=== PATIENT | female | born 1935 | race Caucasian/White ===

== ENCOUNTER 2021-01-25 15:11 | Emergency (ER) | payer MEDICARE, BC ==
[~2021-01-25] VITALS: Ht 162.6 cm; Wt 75.9 kg
[2021-01-25] MEDS ORDERED: LISI2.5T2 PO (15:22)
[2021-01-25] MEDS ORDERED: CARV6.25 PO (15:22)
--- NOTE | 2021-01-25 16:16 | REP ---
INDICATION: WEAKNESS COMPARISON: None. TECHNIQUE: Portable AP view of the chest FINDINGS: Suspected large hiatal hernia and or elevation to the left hemidiaphragm with underlying perihilar and left lower lobe opacities may represent acute and or chronic changes including pleural effusion. No pneumothorax. Evaluation of the mediastinum is limited due to overlying opacities. IMPRESSION: Findings as described above. No prior examination is available for comparison. Elements of both acute and chronic changes suggested. Consider chest CT for further investigation if the patient remains symptomatic. <Electronically signed by Vadim Pollack > 01/25/21 [id number]
[2021-01-25] MEDS ORDERED: PANTOPRAZOLE 40MG VIAL (C9113 PER 1) IV ONE (17:15)
[2021-01-25] MEDS ORDERED: FAMOTIDINE IV BAG 20 MG in IV 1 EA IV ONE (17:15)
[2021-01-25] MEDS ORDERED: GI COCKTAIL 50ML BTL(HYOSCYAMINE/MAALOX/LIDOCAINE VISCOUS)(1:3:1) PO ONE (17:15)
[2021-01-25 18:51] LABS: HEMATOCRIT 35.4 % (36.0-47.0); HEMOGLOBIN 10.9 g/dl (12.0-15.5); MEAN CORPUSCULAR HEMOGLOBIN 29.1 pg (27.0-33.0); MEAN CORPUSCULAR HGB CONC 30.8 g/dl (32.0-36.5); MEAN CORPUSCULAR VOLUME 94.7 fl (80.0-96.0); PLATELET COUNT, AUTOMATED 498 10^3/uL (150-450); RED BLOOD COUNT 3.74 10^6/uL (4.00-5.40)
[2021-01-25 19:03] LABS: INR 1.19; PROTHROMBIN TIME 15.4 SECONDS (12.5-14.3)
[2021-01-25 19:04] LABS: PARTIAL THROMBOPLASTIN TIME 28.9 SECONDS (24.2-38.5)
[2021-01-25 19:19] LABS: ALT/SGPT 14 U/L (12-78); AMYLASE 105 U/L (25-115); BILIRUBIN,DIRECT 0.3 MG/DL (0.0-0.2); BILIRUBIN,TOTAL 0.6 MG/DL (0.2-1.0); BLOOD UREA NITROGEN 31 MG/DL (7-18); CALCIUM LEVEL 8.3 MG/DL (8.8-10.2); CARBON DIOXIDE LEVEL 24 MEQ/L (21-32); CHLORIDE LEVEL 108 MEQ/L (98-107); CK-MB VALUE MASS < 1.0 NG/ML (<3.6); CPK CREATINE PHOSPHOKINASE 17 U/L (26-192); CREATININE FOR GFR 1.14 MG/DL (0.55-1.30); GLOMERULAR FILTRATION RATE 48.1 (>32); GLUCOSE, FASTING 87 MG/DL (70-100); LIPASE 636 U/L (73-393); MB/CK RELATIVE INDEX 5.88 (< OR =4); POTASSIUM SERUM 4.3 MEQ/L (3.5-5.1); SODIUM LEVEL 141 MEQ/L (136-145); TROPONIN I < 0.02 NG/ML (< 0.10)
[2021-01-25] MEDS ORDERED: ISOVUE-370 76% 100ML VIAL As Ordered ONE (19:37)
[2021-01-25 19:41] LABS: WHITE BLOOD COUNT 15.8 10^3/uL (4.0-10.0)
[2021-01-25] MEDS ORDERED: NS 1,000 ML IV ONE (19:50)
[2021-01-25 20:02] LABS: ATYPICAL LYMPH 3 % (0-5); BASOPHILS 1 % (0-1); EOSINOPHILS 1 % (0-3); HYPOCHROMASIA 1+; LYMPHOCYTES 19 % (16-44); METAMYELOCYTES 1 % (0-0); MONOCYTES 6 % (0-5); NEUTROPHILS 67 % (28-66); PLATELET ESTIMATE INCREASED (NORMAL)
--- NOTE | 2021-01-25 21:02 | REPVR ---
PROCEDURE INFORMATION: Exam: CTA Chest With Contrast Exam date and time: 01/25/2021 8:03 PM Age: 85 years old Clinical indication: Chest pain; Additional info: Chest congestion, weakness, epigastric pain into chest pain TECHNIQUE: Imaging protocol: Computed tomographic angiography of the chest with contrast. 3D rendering (Not supervised by radiologist): MIP and/or 3D reconstructed images were created by the technologist. Radiation optimization: All CT scans at this facility use at least one of these dose optimization techniques: automated exposure control; mA and/or kV adjustment per patient size (includes targeted exams where dose is matched to clinical indication); or iterative reconstruction. Contrast material: ISOVUE 370; Contrast volume: 100 ml; Contrast route: INTRAVENOUS (IV); COMPARISON: CR Chest, 1 view 01/25/2021 3:56 PM FINDINGS: Pulmonary arteries: Normal. No pulmonary emboli. Aorta: Unremarkable. No aortic aneurysm. No aortic dissection. Thyroid: The thyroid is diffusely enlarged with numerous nodules of varying size and complexity. Lungs: Mild dependent atelectasis in the lung bases. No airspace consolidation or masses. Airways are clear. Pleural spaces: Small left pleural effusion. Heart: Unremarkable. No cardiomegaly. No pericardial effusion. Lymph nodes: Unremarkable. No enlarged lymph nodes. Gallbladder and bile ducts: Numerous calculi in the gallbladder. Stomach and bowel: There is a very large hiatal hernia containing the majority of the stomach and a large amount of peritoneal fat. Bones/joints: Skeletal degenerative changes are noted. Soft tissues: Unremarkable. IMPRESSION: 1. Large hiatal hernia containing a majority of the stomach. 2. Mild dependent atelectasis. Small left pleural effusion. 3. Multinodular thyroid goiter. 4. Cholelithiasis. COMMENTS: Consistent with the [employer]'s Incidental Findings Committee white paper (J Am Evelyn Radiol 2015): In patients aged 35 years and older with an incidental thyroid nodule equal to or greater than 1.[address], MRI or extrathyroidal US, further evaluation with dedicated thyroid US is recommended for patients with normal life expectancy and without comorbidities. For smaller nodules without suspicious features, no further evaluation or follow up is recommended. Electronically signed by: Hari Denton On 01/25/2021 21:02:21 PM
--- NOTE | 2021-01-25 21:09 | REPVR ---
PROCEDURE INFORMATION: Exam: CT Abdomen And Pelvis With Contrast Exam date and time: 01/25/2021 8:03 PM Age: 85 years old Clinical indication: Abdominal pain; Generalized; Additional info: Epigastric pain, radiates to back TECHNIQUE: Imaging protocol: Computed tomography of the abdomen and pelvis with contrast. Radiation optimization: All CT scans at this facility use at least one of these dose optimization techniques: automated exposure control; mA and/or kV adjustment per patient size (includes targeted exams where dose is matched to clinical indication); or iterative reconstruction. Contrast material: ISOVUE 370; Contrast volume: 100 ml; Contrast route: INTRAVENOUS (IV); COMPARISON: No relevant prior studies available. FINDINGS: Liver: Normal. No mass. Gallbladder and bile ducts: Multiple small calculi in the gallbladder. No gallbladder wall thickening or pericholecystic fluid. No biliary duct dilation. Pancreas: No pancreatic mass or pancreatic duct dilation. Spleen: Normal. No splenomegaly. Adrenal glands: Normal. No mass. Kidneys and ureters: Kidneys are atrophic. Small cysts in both kidneys. No hydronephrosis. Stomach and bowel: There is a large hiatal hernia containing majority of the stomach. Mild edema in the stomach at the level of the hiatal hernia. There is colonic diverticulosis without evidence of diverticulitis. The small bowel is unremarkable. No bowel obstruction. Appendix: No evidence of appendicitis. Intraperitoneal space: Unremarkable. No free air. No significant fluid collection. Retroperitoneal space: Retroperitoneal edema along the superior surface of the pancreas. Vasculature: Unremarkable. No abdominal aortic aneurysm. Lymph nodes: Unremarkable. No enlarged lymph nodes. Urinary bladder: Unremarkable as visualized. Reproductive: There is an IUD in the uterus. 5.9 cm cyst in the right ovary. 3.2 cm cyst in the left ovary. Bones/joints: There are advanced degenerative changes in the spine and pelvis. Soft tissues: Unremarkable. IMPRESSION: 1. Very large hiatal hernia containing majority of the stomach. Mild edema in the stomach at the level of the hiatal hernia may indicate gastritis. 2. Possible pancreatitis with retroperitoneal edema along the superior margin of the pancreas. No pancreatic duct dilation or abscess. 3. Bilateral ovarian cysts are abnormal for a postmenopausal woman of this age. Pelvic ultrasound follow-up is recommended if not previously evaluated. 4. Colonic diverticulosis without evidence of diverticulitis. 5. Cholelithiasis. No signs of cholecystitis or biliary duct dilation. COMMENTS: Consistent with the [employer]'s Incidental Findings Committee white paper (J Am Evelyn Radiol 2018): Any incidental renal lesion less than 1 cm or classified as too small to characterize, or any incidental cystic renal lesion characterized as simple-appearing, is likely benign. No follow-up imaging is recommended for these lesions per consensus recommendations based on imaging criteria. Electronically signed by: Hari Denton On 01/25/2021 21:09:34 PM
[2021-01-25 21:45] VITALS: BP 128/72
[2021-01-25] MEDS ORDERED: FAMO20TA PO (21:57)
--- NOTE | 2021-01-25 22:34 | ECGEPIP ---
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
--- NOTE | 2021-01-28 09:22 | ED PDOC ---
Post-Departure Follow-Up radiology report faxed to dayne Weinstein Sarah MD Jan 28, 2021 09:22
== END 2021-01-25 22:21 | disposition home or self-care (01) ==
LOC: M ED 15:11
DX: K85.90 Acute pancreatitis without necrosis or infection, unspecified (principal); K44.9 Diaphragmatic hernia without obstruction or gangrene; R09.82 Postnasal drip; I10 Essential (primary) hypertension; Z79.899 Other long term (current) drug therapy
CPT/HCPCS: 36415; 71045; 71275; 74177; 80048; 80076; 81001; 82150; 82550; 82553; 83605; 83690; 84484; 85025; 85610; 85730; 93005; 93041; 96361; 96365; 96375; 99285; C9113; Q9967

== ENCOUNTER 2021-02-04 13:00 | Inpatient (IN) | payer MEDICARE, BC ==
[~2021-02-04] VITALS: Ht 152.4 cm; Wt 72.4 kg
[~2021-02-04 13:00] MED LIST: CARV6.25 PO; FAMO20TA PO; LISI2.5T2 PO
[2021-02-04] MEDS ORDERED: NS 1,000 ML IV ONE ×2 (13:30→20:40)
[2021-02-04 13:57] LABS: HEMATOCRIT 30.7 % (36.0-47.0); HEMOGLOBIN 9.5 g/dl (12.0-15.5); MEAN CORPUSCULAR HEMOGLOBIN 29.4 pg (27.0-33.0); MEAN CORPUSCULAR HGB CONC 30.9 g/dl (32.0-36.5); PLATELET COUNT, AUTOMATED 473 10^3/uL (150-450); RED BLOOD COUNT 3.23 10^6/uL (4.00-5.40); WHITE BLOOD COUNT 27.4 10^3/uL (4.0-10.0)
--- NOTE | 2021-02-04 14:02 | REP ---
INDICATION: Altered Mental Status. COMPARISON: None. TECHNIQUE: CT brain performed in the axial plane. Coronal reconstruction images are performed. FINDINGS: There is moderate atrophy. There is no midline shift or mass effect. Patchy lucencies in the periventricular white matter bilaterally are most consistent with chronic periventricular small vessel ischemic changes. There is no acute intracranial hemorrhage or extra-axial fluid collection. There are vascular calcifications in the carotid siphons. The visualized paranasal sinuses and mastoid air cells are aerated and clear. IMPRESSION: Chronic changes as discussed above. No acute intracranial hemorrhage, midline shift or mass effect. <Electronically signed by Richie Perales > 02/04/21 [id number]
--- NOTE | 2021-02-04 14:20 | REP ---
INDICATION: Altered Mental Status. COMPARISON: 01/25/2021. TECHNIQUE: Single portable AP view of the chest was performed. FINDINGS: Again noted is a very large hiatal hernia on the left. Underlying left base infiltrate in or pleural effusion could again be present, as seen on prior study. The heart and mediastinum are unchanged. There are no new findings. IMPRESSION: Very large left hiatal hernia with possible underlying infiltrate/effusion. <Electronically signed by Richie Perales > 02/04/21 [id number]
[2021-02-04 14:25] LABS: LYMPHOCYTES 6 % (16-44); MONOCYTES 3 % (0-5); NEUTROPHILS 77 % (28-66)
[2021-02-04 14:26] LABS: PLATELET ESTIMATE INCREASED (NORMAL); TOXIC VACUOLATION 2+
[2021-02-04 14:27] LABS: HYPOCHROMASIA 1+
[2021-02-04] MEDS ORDERED: cefTRIAXone SOD 2 GM in D5W MINI-BAG PLUS 50 ML IV ONE (15:00)
[2021-02-04 15:13] LABS: ACETAMINOPHEN LEVEL 4.5 UG/ML (10.0-30.0); ALBUMIN 1.7 GM/DL (3.2-5.2); ALT/SGPT 12 U/L (12-78); BILIRUBIN,DIRECT 0.3 MG/DL (0.0-0.2); BILIRUBIN,TOTAL 0.5 MG/DL (0.2-1.0); BLOOD UREA NITROGEN 25 MG/DL (7-18); CALCIUM LEVEL 7.9 MG/DL (8.8-10.2); CARBON DIOXIDE LEVEL 20 MEQ/L (21-32); CHLORIDE LEVEL 106 MEQ/L (98-107); CK-MB VALUE MASS 6.4 NG/ML (<3.6); CPK CREATINE PHOSPHOKINASE 126 U/L (26-192); CREATININE FOR GFR 2.07 MG/DL (0.55-1.30); ETHYL ALCOHOL (ETHANOL) < 0.003 % (0.000-0.010); GLOMERULAR FILTRATION RATE 24.2 (>32); GLUCOSE, FASTING 86 MG/DL (70-100); LIPASE 101 U/L (73-393); MB/CK RELATIVE INDEX 5.08 (< OR =4); POTASSIUM SERUM 4.3 MEQ/L (3.5-5.1); SALICYLATE LEVEL < 1.7 MG/DL (5.0-30.0); SODIUM LEVEL 138 MEQ/L (136-145); THYROID STIMULATING HORMONE 0.171 uIU/ML (0.358-3.740); TROPONIN I 1.42 NG/ML (< 0.10)
[2021-02-04 15:15] LABS: AMPHETAMINES LEVEL URINE NEGATIVE (NEGATIVE); BARBITURATES URINE NEGATIVE (NEGATIVE); BENZODIAZEPINES URINE NEGATIVE (NEGATIVE); CANNABINOIDS URINE NEGATIVE (NEGATIVE); COCAINE METABOLITE URINE NEGATIVE (NEGATIVE); METHADONE URINE NEGATIVE (NEGATIVE); OPIATES URINE NEGATIVE (NEGATIVE); PHENCYCLIDINE URINE NEGATIVE (NEGATIVE)
[2021-02-04] MEDS ORDERED: NS IV ONE (15:35)
[2021-02-04] MEDS ORDERED: FAMO20TA5 PO (15:47)
[2021-02-04] MEDS ORDERED: MONT10TA10 PO (15:47)
[2021-02-04] MEDS ORDERED: MOM 30ML SUSPENSION UDC PO PRN (15:50)
[2021-02-04] MEDS ORDERED: ACETAMINOPHEN TAB 650MG DOSE (2X325MG) PO PRN (15:50)
[2021-02-04 16:20] LABS: FREE T4 2.09 NG/DL (0.76-1.46)
[2021-02-04 17:45] VITALS: BP 158/60
--- NOTE | 2021-02-04 18:42 | HPEPDOC ---
[facility] Medical History & Physical Date of Admission Feb 04, 2021 Date of Service: Feb 04, 2021 History and Physical CHIEF COMPLAINT: AMS HISTORY OF PRESENT ILLNESS: 85 yo woman with a history of HTN, GERD, hiatal hernia, asthma who presented to the ED a few days ago for abdominal pain and was discharged home with mild pa ncreatitis who now returned today because this morning her noted AMS and she did not recognize him and so he called EMS. They report no recent fever, chills, diarrhea, chest pain, palpitations, shortness of breath, sick contacts, speech slurring, asymmetrical weakness and the abdominal pain had actually improved. She has had poor PO though over the last few days. On arrival EMS gave her peripheral levophed for hypotension and not fluids, not sure why and brought her to the ED where she continued to have low BP and was given fluids with great response. On evaluation, she had a turbid grossly positive UA, and also endorsed bladder discomfort and some flank pain, while she had a leukocytosis to 27.4 with a 14% bandemia, Hgb 9.5, platelets 473, na 138, K 4.3, BUN 25, Cr 2.07, LFTs wnl, lipase wnl, troponin 1.42 with a non ischemic EKG, lactate of 1.8 and CXR showed a known large hiatal hernia and potential underlying L base infiltrate or effusion as previously noted as well and CT head showed no acute pathology. She is now being admitted to medicine for sepsis 2/2 pyelonephritis with an IVON and metabolic encephalopathy. In addition to the sepsis bolus of 30cc/kg she was given cetriaxone 2g IV and BCx were drawn prior to the antibiotics. PAST MEDICAL HISTORY: HTN, GERD, hiatal hernia, asthma SOCIAL HISTORY: Tobacco use: no ETOH: no Illicit drug use: no FAMILY HISTORY: non contributory ALLERGIES: Please see below. REVIEW OF SYSTEMS: 10 point ROS was otherwise negative except the elements as noted in the HPI HOME MEDICATIONS: Please see below. PHYSICAL EXAMINATION: VITAL SIGNS: see below GENERAL APPEARANCE: Elderly, NAD HEENT: NCAT, EOMI, PERRLA, anicteric, MMM CARDIOVASCULAR: RRR, no m/r/g LUNGS: CTAB ABDOMEN: soft, normoactive, NTND EXTREMITIES: 1+ pitting pedal edema bilaterally NEUROLOGICAL: Aox3 now, clear speech, moving all extremities without any noted deficits PSYCHIATRIC: AOx3. LABORATORY DATA and IMAGING: as noted above, see below for full details MICROBIOLOGY: Please see below. ASSESSMENT: 85 yo woman with a history of HTN, GERD, hiatal hernia, asthma who presented to the ED a few days ago for abdominal pain and was discharged home with mild pancreatitis who now returned today because this morning her noted AMS now being admitted to medicine for sepsis 2/2 pyelonephritis with an IVON and metabolic encephalopathy. PLAN: Sepsis with ongoing pyelonephritis: -UA was turbid and grossly positive, f/u UCx -f/u BCx -s/p IVF with good response -empiric ceftriaxone -tylenol PRN for fever and pain HTN: -hold all home antihypertensives while septic with low BPs GERD: -continue home PPI Asthma: -continue home montelukast IVON: likely prerenal -s/p IVF, may need more will monitor daily BMP and strict I/Os -no further imaging for now Troponinemia: without chest pain, a stable non ischemic EKG i/s/o likely demand 2/2 sepsis as well as IVON -telemetry -f/u q4h troponins until downtrend DVT ppx: heparin SC Vital Signs Vital Signs Date Time Temp Pulse Resp B/P (MAP) Pulse Ox O2 Delivery O2 Flow Rate FiO2 02/04/21 17:05 97.4 73 18 98/56 (70) 99 Room Air Laboratory Data Labs 24H Laboratory Tests 2 02/04/21 13:27: Urine Opiates Screen NEGATIVE, Urine Methadone Screen NEGATIVE, Urine Barbiturates Screen NEGATIVE, Urine Phencyclidine Screen NEGATIVE, Urine Amphetamines Screen NEGATIVE, Urine Benzodiazepines Screen NEGATIVE, Urine Cocaine Metabolite Screen NEGATIVE, Urine Cannabinoids Screen NEGATIVE 02/04/21 13:44: Neutrophils (%) (Auto) , Nucleated Red Blood Cells % (auto) 0.0, Neutrophils 77H, Band Neutrophils 14H, Lymphocytes (Manual) 6L, Monocytes (Manual) 3, Hypochromasia 1+, Toxic Vacuolation 2+, Platelet Estimate INCREASED 02/04/21 14:29: Anion Gap 12, Glomerular Filtration Rate 24.2L, Lactic Acid Level 1.8, Calcium Level 7.9L, Total Bilirubin 0.5, Direct Bilirubin 0.3H, Aspartate Amino Transf (AST/SGOT) 24, Alanine Aminotransferase (ALT/SGPT) 12, Alkaline Phosphatase 78, Total Creatine Kinase 126, Creatine Kinase MB 6.4H, Creatine Kinase MB Relative Index 5.08H, Troponin I 1.42H, Total Protein 5.0L, Albumin 1.7L, Albumin/Globulin Ratio 0.5L, Lipase 101, Thyroid Stimulating Hormone (TSH) 0.171L, Free Thyroxine 2.09H, Salicylates Level < 1.7L, Acetaminophen Level 4.5L, Ethyl Alcohol Level < 0.003 02/04/21 14:45: Urine Color TOY, Urine Appearance TURBIDH, Urine pH 5.0, Urine Specific [place] 1.015, Urine Protein 2+H, Urine Glucose (UA) NEGATIVE, Urine Ketones NEGATIVE, Urine Blood 3+H, Urine Nitrite NEGATIVE, Urine Bilirubin NEGATIVE, Urine Urobilinogen 0.2, Urine Leukocyte Esterase 3+H, Urine WBC (Auto) TNTCH, Urine RBC (Auto) 86H, Urine Hyaline Casts (Auto) 0, Urine Bacteria (Auto) 3+H, Urine Squamous Epithelial Cells 0, Urine Sperm (Auto) CBC/BMP Laboratory Tests 02/04/21 13:44 02/04/21 14:29 Microbiology Microbiology 02/04/21 Urine Culture, Received Pending 02/04/21 Blood Culture, Received Pending 02/04/21 Respiratory Virus Panel (PCR) (ROMULO) - Final, Complete 02/04/21 Blood Culture, Received Pending Home Medications Scheduled Carvedilol (Carvedilol) 6.25 Mg Tablet, 6.25 MG PO BID Famotidine (Famotidine) 20 Mg Tablet, 20 MG PO BID Lisinopril (Lisinopril) 2.5 Mg Tablet, 2.5 MG PO DAILY Montelukast Sodium (Montelukast Sodium) 10 Mg Tablet, 10 MG PO DAILY Allergies Coded Allergies: No Known Allergies (Unverified , 01/25/21) A-FIB/CHADSVASC A-FIB History Current/History of A-Fib/PAF?: No Current PO Anticoag Therapy: No Age/Risk Factor Scoring CHADSVASC: CHADSVASC Response (Comments) Value Age Risk Factor Age >/= 75 years old 2 Gender Risk Factor Female 1 Hx of CHF No 0 Hx of HTN Yes 1 Hx of Stroke/TIA/or VTE No 0 Hx of Diabetes No 0 Hx of Vascular Disease No 0 Total 4 Treatment Treatment ordered: NONE Reason Anticoagulant not given: Not indicated/[id number] BANDAR PARHAM MD Feb 04, 2021 18:42
[2021-02-04 20:00] VITALS: BP_SYST 96; BP_DIAS 56; BP_DIAS 58
[2021-02-04] MEDS: HEPARIN SOD (PORCINE) 5000UNITS/ML 1ML VIAL/SYRINGE SC SCH (22:01)
[2021-02-04] MEDS: FAMOTIDINE 20 MG TAB PO SCH (22:01)
[2021-02-04 23:06] VITALS: BP 101/55
[2021-02-05] VITALS (7 sets, daily range): BP systolic 88–133; BP diastolic 48–67
[2021-02-05] MEDS ORDERED: NS 500 ML IV ONE (00:20)
[2021-02-05] MEDS ORDERED: NS 1,000 ML IV SCH (00:20)
[2021-02-05 02:33] LABS: HEMATOCRIT 29.9 % (36.0-47.0); MEAN CORPUSCULAR HEMOGLOBIN 29.1 pg (27.0-33.0); MEAN CORPUSCULAR HGB CONC 30.1 g/dl (32.0-36.5); MEAN CORPUSCULAR VOLUME 96.8 fl (80.0-96.0); PLATELET COUNT, AUTOMATED 478 10^3/uL (150-450); RED BLOOD COUNT 3.09 10^6/uL (4.00-5.40); WHITE BLOOD COUNT 21.2 10^3/uL (4.0-10.0)
[2021-02-05 03:08] LABS: CALCIUM LEVEL 7.1 MG/DL (8.8-10.2); CREATININE FOR GFR 1.79 MG/DL (0.55-1.30); GLOMERULAR FILTRATION RATE 28.6 (>32); MAGNESIUM LEVEL 1.7 MG/DL (1.8-2.4); POTASSIUM SERUM 3.9 MEQ/L (3.5-5.1); TROPONIN I 0.62 NG/ML (< 0.10)
[2021-02-05] MEDS ORDERED: MAG SULF 1GM/100ML (MAG RUN) 1 GM in IV 1 EA IV ONE (08:00)
[2021-02-05] MEDS: MONTELUKAST 10 MG TAB PO SCH (08:05)
[2021-02-05] MEDS: FAMOTIDINE 20 MG TAB PO SCH ×2 (08:05→19:49)
[2021-02-05] MEDS: HEPARIN SOD (PORCINE) 5000UNITS/ML 1ML VIAL/SYRINGE SC SCH ×2 (08:05→19:51)
--- NOTE | 2021-02-05 09:34 | ECGEPIP ---
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
--- NOTE | 2021-02-05 12:13 | IPNPDOC ---
Text Note Date of Service The patient was seen on 02/05/21. NOTE SUBJECTIVE: -No acute complaints this morning, oriented fully -Was hypotensive overnight requiring 1L bolus and started on 100cc/hr fluids -Requesting herrera to be discontinued, it is very uncomfortable OBJECTIVE: VITAL SIGNS: see below GENERAL APPEARANCE: Elderly, NAD HEENT: NCAT, EOMI, PERRLA, anicteric, MMM CARDIOVASCULAR: RRR, no m/r/g LUNGS: Trace crackles at the bases now, otherwise clear ABDOMEN: soft, normoactive, NTND EXTREMITIES: 2+ pitting pedal edema bilaterally NEUROLOGICAL: Aox3 now, clear speech, moving all extremities without any noted deficits PSYCHIATRIC: AOx3. LABORATORY DATA: reviewed WBC 21.2 Hgb 9 platelets 478 na 140 K 3.9 Cr 1.79 Mag 1.7 MICROBIOLOGY: Please see below. ASSESSMENT: 85 yo woman with a history of HTN, GERD, hiatal hernia, asthma who presented to the ED a few days ago for abdominal pain and was discharged home with mild pa ncreatitis who now returned with AMS and admitted to medicine for sepsis 2/2 pyelonephritis with an IVON and metabolic encephalopathy. PLAN: Sepsis 2/2 pyelonephritis: -UA was turbid and grossly positive, f/u UCx -f/u BCx -continue IVF at 100cc/hr -empiric ceftriaxone 2g/24h -tylenol PRN for fever and pain -DC herrera HTN: -hold all home antihypertensives while septic with low BPs GERD: -continue home PPI Asthma: -continue home montelukast IVON: likely prerenal, improving with fluids -continue IVF -strict I/Os -no further imaging for now Troponinemia: without chest pain, a stable non ischemic EKG i/s/o likely demand 2/2 sepsis as well as IVON. Downtrended -telemetry DVT ppx: heparin SC VS,Fishbone, I+O VS, Fishbone, I+O Laboratory Tests 02/04/21 13:44 02/04/21 14:29 02/05/21 02:21 Vital Signs Date Time Temp Pulse Resp B/P (MAP) Pulse Ox O2 Delivery O2 Flow Rate FiO2 02/05/21 04:00 97.1 76 18 98/60 (73) 94 Room Air I&O- Last 24 Hours up to 6 AM 02/05/21 06:00 Intake Total 1050 ml Output Total 0 ml Balance 1050 ml BANDAR PARHAM MD Feb 05, 2021 07:35
[2021-02-05] MEDS ORDERED: cefTRIAXone SOD 2 GM in D5W MINI-BAG PLUS 50 ML IV SCH (16:00)
[2021-02-06 05:36] VITALS: BP 147/76
[2021-02-06 07:23] LABS: HEMATOCRIT 31.8 % (36.0-47.0); HEMOGLOBIN 9.5 g/dl (12.0-15.5); MEAN CORPUSCULAR HEMOGLOBIN 28.6 pg (27.0-33.0); MEAN CORPUSCULAR HGB CONC 29.9 g/dl (32.0-36.5); MEAN CORPUSCULAR VOLUME 95.8 fl (80.0-96.0); PLATELET COUNT, AUTOMATED 508 10^3/uL (150-450); RED BLOOD COUNT 3.32 10^6/uL (4.00-5.40); WHITE BLOOD COUNT 19.5 10^3/uL (4.0-10.0)
[2021-02-06 07:31] LABS: CALCIUM LEVEL 8.3 MG/DL (8.8-10.2); CREATININE FOR GFR 1.35 MG/DL (0.55-1.30); GLOMERULAR FILTRATION RATE 39.6 (>32); POTASSIUM SERUM 4.4 MEQ/L (3.5-5.1)
[2021-02-06] MEDS ORDERED: CARVedilol 6.25 MG TAB PO SCH (09:00)
[2021-02-06] MEDS: FAMOTIDINE 20 MG TAB PO SCH (09:09)
[2021-02-06] MEDS: MONTELUKAST 10 MG TAB PO SCH (09:09)
[2021-02-06] MEDS: HEPARIN SOD (PORCINE) 5000UNITS/ML 1ML VIAL/SYRINGE SC SCH (09:09)
[2021-02-06 09:10] VITALS: BP_SYST 122; BP_DIAS 75; BP_DIAS 78
[2021-02-06] MEDS: CEPHALEXIN 250MG CAPSULE PO SCH ×2 (10:16→13:09)
[2021-02-06] MEDS ORDERED: CEPH250T PO (11:21)
--- NOTE | 2021-02-06 11:24 | IPNPDOC ---
Text Note Date of Service The patient was seen on 02/06/21. NOTE SUBJECTIVE: -No acute complaints this morning, oriented fully OBJECTIVE: VITAL SIGNS: see below GENERAL APPEARANCE: Elderly, NAD HEENT: NCAT, EOMI, PERRLA, anicteric, MMM CARDIOVASCULAR: RRR, no m/r/g LUNGS: Trace crackles at the bases now, otherwise clear ABDOMEN: soft, normoactive, NTND EXTREMITIES: 2+ pitting pedal edema bilaterally NEUROLOGICAL: Aox3 now, clear speech, moving all extremities without any noted deficits PSYCHIATRIC: AOx3. LABORATORY DATA: reviewed WBC 19.5 Hgb 9.5 platelets 508 na 141 K 4.4 Cr 1.35 MICROBIOLOGY: UCx growing E.coli resistant to ampicillin and gentamicin ASSESSMENT: 85 yo woman with a history of HTN, GERD, hiatal hernia, asthma who presented to the ED a few days ago for abdominal pain and was discharged home with mild pancreatitis who now returned with AMS and admitted to medicine for sepsis 2/2 pyelonephritis with an IVON and metabolic encephalopathy. PLAN: Sepsis 2/2 pyelonephritis: sepsis resolved. -UA was turbid and grossly positive, growing E.coli -f/u BCx -Discontinue ceftriaxone 2g/24h to switch to keflex, day 3 -tylenol PRN for fever and pain HTN: -restart coreg, continue holding ACEi GERD: -continue home PPI Asthma: -continue home montelukast IVON: likely prerenal, improved with fluids -continue holding ACEi -strict I/Os -no further imaging for now Troponinemia: without chest pain, a stable non ischemic EKG i/s/o likely demand 2/2 sepsis as well as VION. Downtrended DVT ppx: heparin SC VS,Fishbone, I+O VS, Fishbone, I+O Laboratory Tests 02/06/21 05:59 Vital Signs Date Time Temp Pulse Resp B/P (MAP) Pulse Ox O2 Delivery O2 Flow Rate FiO2 02/06/21 05:36 97.0 97 20 147/76 (99) 97 Room Air I&O- Last 24 Hours up to 6 AM 02/06/21 05:59 Intake Total 1440 ml Output Total 450 ml Balance 990 ml BANDAR PARHAM MD February 06, 2021 08:04
--- NOTE | 2021-02-06 11:55 | DS.PDOC ---
Discharge Summary General Date of Admission Feb 04, 2021 at 15:50 Date of Discharge 02/06/2021 Attending Physician: BANDAR PARHAM MD Discharge Summary PROCEDURES PERFORMED DURING STAY: None ADMITTING DIAGNOSES: 1. sepsis 2. urinary tract infection DISCHARGE DIAGNOSES: E.coli pyelonephritis Sepsis 2/2 pyelonephritis IVON Metabolic encephalopathy HTN GERD Hiatal hernia Asthma COMPLICATIONS/CHIEF COMPLAINT: Sepsis, Urinary Tract Infection. HISTORY OF PRESENT ILLNESS: 85 yo woman with a history of HTN, GERD, hiatal hernia, asthma who presented to the ED a few days prior to admission for abdominal pain and was discharged home with a diagnosis of mild pancreatitis who returned on 02/04 because her noted AMS and she did not recognize him and so he called EMS. HOSPITAL COURSE: Ms. De Jesus and her both reported no recent fevers, chills, diarrhea, chest pain, palpitations, shortness of breath, sick contacts, speech slurring, asymmetrical weakness and the abdominal pain had actually improved. She has had poor PO though over the last few days. On arrival EMS gave her peripheral levophed for hypotension and not fluids, not sure why and brought her to the ED where she continued to have low BP and was given fluids with great response. On evaluation, she had a turbid grossly positive UA, and also endorsed bladder discomfort and some flank pain, while she had a leukocytosis to 27.4 with a 14% bandemia, Hgb 9.5, platelets 473, na 138, K 4.3, BUN 25, Cr 2.07, LFTs wnl, lipase wnl, troponin 1.42 with a non ischemic EKG, lactate of 1.8 and CXR showed a known large hiatal hernia and potential underlying L base infiltrate or effusion as previously noted as well and CT head showed no acute pathology. She was admitted to medicine for sepsis 2/2 pyelonephritis with an IVON and metabolic encephalopathy. She was started on empiric ceftriaxone 2g IV and BCx were drawn prior to the antibiotics, and urine ultimately grew E.coli and she was transitioned to oral keflex. Sepsis resolved, IVON resolve and symptoms improved. She is now being discharged home to complete a course of keflex and will follow up with her PCP within the next 7d. DISCHARGE MEDICATIONS: Please see below. ALLERGIES: Please see below. PHYSICAL EXAMINATION ON DISCHARGE: VITAL SIGNS: Please see below. GENERAL APPEARANCE: Elderly, NAD HEENT: NCAT, EOMI, PERRLA, anicteric, MMM CARDIOVASCULAR: RRR, no m/r/g LUNGS: Trace crackles at the bases now, otherwise clear ABDOMEN: soft, normoactive, NTND EXTREMITIES: 2+ pitting pedal edema bilaterally NEUROLOGICAL: Aox3 now, clear speech, moving all extremities without any noted deficits PSYCHIATRIC: AOx3. LABORATORY DATA: Please see below. IMAGING: CXR: Again noted is a very large hiatal hernia on the left. Underlying left base infiltrate in or pleural effusion could again be present, as seen on prior study. The heart and mediastinum are unchanged. There are no new findings. IMPRESSION: Very large left hiatal hernia with possible underlying infiltrate/effusion. CT head: There is moderate atrophy. There is no midline shift or mass effect. Patchy lucencies in the periventricular white matter bilaterally are most consistent with chronic periventricular small vessel ischemic changes. There is no acute intracranial hemorrhage or extra-axial fluid collection. There are vascular calcifications in the carotid siphons. The visualized paranasal sinuses and mastoid air cells are aerated and clear. IMPRESSION: Chronic changes as discussed above. No acute intracranial hemorrhage, midline shift or mass effect. PROGNOSIS: Good ACTIVITY: As tolerated DIET: Regular DISCHARGE PLAN: Home DISPOSITION: Home DISCHARGE INSTRUCTIONS: Please complete the antibiotic course as instructed ITEMS TO FOLLOWUP ON ON OUTPATIENT: Pyelonephritis resolution - PCP follow up DISCHARGE CONDITION: Stable TIME SPENT ON DISCHARGE: 36 minutes. Vital Signs/I&Os Vital Signs Date Time Temp Pulse Resp B/P (MAP) Pulse Ox O2 Delivery O2 Flow Rate FiO2 02/06/21 09:10 108 122/78 (93) 02/06/21 05:36 97.0 20 97 Room Air I&O- Last 24 Hours up to 6 AM 02/06/21 06:00 Intake Total 1440 ml Output Total 450 ml Balance 990 ml Laboratory Data Labs 24H Laboratory Tests 2 02/06/21 05:59: Nucleated Red Blood Cells % (auto) 0.0, Anion Gap 12, Glomerular Filtration Rate 39.6, Calcium Level 8.3#L CBC/BMP Laboratory Tests 02/06/21 05:59 Microbiology Microbiology 02/04/21 Urine Culture - Final, Complete Escherichia Coli 02/04/21 Blood Culture - Preliminary, Resulted No growth after 24 hours . All specim... 02/04/21 Respiratory Virus Panel (PCR) ([facility]) - Final, Complete 02/04/21 Blood Culture - Preliminary, Resulted No growth after 24 hours . All specim... Discharge Medications Scheduled Carvedilol (Carvedilol) 6.25 Mg Tablet, 6.25 MG PO BID, (Reported) Cephalexin (Cephalexin) 250 Mg Tablet, 1 TAB PO QID Famotidine (Famotidine) 20 Mg Tablet, 20 MG PO BID, (Reported) Lisinopril (Lisinopril) 2.5 Mg Tablet, 2.5 MG PO DAILY, (Reported) Montelukast Sodium (Montelukast Sodium) 10 Mg Tablet, 10 MG PO DAILY, (Reported) Allergies Coded Allergies: No Known Allergies (Unverified , 01/25/21) BANDAR PARHAM MD February 06, 2021 11:52
--- NOTE | 2021-02-08 11:36 | ECHO ---
DATE OF PROCEDURE: 02/05/2021 Age: 85 Gender: Female REFERRING PHYSICIAN: Kamille Alberto M.D. PATIENT LOCATION: Room 3216. REASON FOR STUDY: High blood pressure, sepsis. 2D MEASUREMENTS: IVS 1.2 cm LV 3.5 cm LVPW 1.0 cm LA 3.0 cm Aorta 3.5 cm DOPPLER MEASUREMENT Peak velocity across the aortic valve 1.8 m/s Peak velocity across the LVOT 0.94 m/s Mitral E 0.82 Mitral A 1.1 with a ratio of 0.8 2D COMMENTS: 1. Normal left ventricle size, wall thickness, and low normal global left ventricular systolic function. The estimated left ventricular systolic ejection fraction is 50% to 55%. 2. Normal left atrium. Normal right atrium and right ventricle. 3. The atrial septum appeared to be normal without evidence of defect or shunt. 4. Normal aortic root. 5. Trace pericardial effusion. No evidence of cardiac tamponade. 6. Mildly calcified aortic valve with normal leaflet excursion. Mildly calcified mitral annulus with normal anterior mitral valve leaflet motion. Normal tricuspid valve. The pulmonic valve and proximal pulmonary artery branches were not well visualized. 7. The inferior vena cava was not visualized. DOPPLER: Detects trace aortic regurgitation. Abnormal relaxation pattern was noted across the mitral valve leaflets, as well as the mitral valve annulus consistent with features of grade 1 left ventricular diastolic dysfunction. IMPRESSION: 1. Low normal global left ventricular systolic function. There are some features of left ventricular diastolic dysfunction manifested by abnormal relaxation. 2. Aortic valve sclerosis with trace aortic regurgitation, but no significant aortic stenosis. 3. Isolated mitral annular calcification. No evidence of mitral regurgitation or stenosis. 4. Trace pericardial effusion, no evidence of cardiac tamponade. [facility]
== END 2021-02-06 14:15 | disposition home or self-care (01) | DRG 871 ==
LOC: M ED 13:00 → M ED INP 15:50 → ENRESERV 16:26 → M PCU 17:38 → M MS5PR 02-05 17:40
PROVIDERS: ADMIT Internal Medicine; ATTEND Internal Medicine
DX: A41.9 Sepsis, unspecified organism (principal); G93.41 Metabolic encephalopathy; N39.0 Urinary tract infection, site not specified; N10 Acute pyelonephritis; N17.9 Acute kidney failure, unspecified; I10 Essential (primary) hypertension; K21.9 Gastro-esophageal reflux disease without esophagitis; K44.9 Diaphragmatic hernia without obstruction or gangrene; J45.909 Unspecified asthma, uncomplicated; I95.9 Hypotension, unspecified; R79.89 Other specified abnormal findings of blood chemistry; D72.829 Elevated white blood cell count, unspecified; B96.20 Unspecified Escherichia coli [E. coli] as the cause of diseases classified elsewhere; Z79.899 Other long term (current) drug therapy; R65.20 Severe sepsis without septic shock

== ENCOUNTER 2022-09-13 12:18 | Inpatient (IN) | payer MEDICARE ==
[~2022-09-13] VITALS: Ht 162.6 cm; Wt 67.5 kg
[~2022-09-13 12:18] MED LIST changes: +CEPH250T PO; +FAMO20TA5 PO; -LISI2.5T2 PO; +LISI2.5T9 PO; +MONT10TA97 PO
[2022-09-13] MEDS ORDERED: NS 1,000 ML IV ONE ×3 (12:40→18:30)
[2022-09-13 13:31] LABS: HEMATOCRIT 32.7 % (36.0-47.0); HEMOGLOBIN 10.4 g/dl (12.0-15.5); MEAN CORPUSCULAR HEMOGLOBIN 29.4 pg (27.0-33.0); MEAN CORPUSCULAR HGB CONC 31.8 g/dl (32.0-36.5); MEAN CORPUSCULAR VOLUME 92.4 fl (80.0-96.0); PLATELET COUNT, AUTOMATED 625 10^3/uL (150-450); RED BLOOD COUNT 3.54 10^6/uL (4.00-5.40)
[2022-09-13 13:41] LABS: WHITE BLOOD COUNT 30.9 10^3/uL (4.0-10.0)
[2022-09-13 14:01] LABS: MAGNESIUM LEVEL 1.9 MG/DL (1.8-2.4)
[2022-09-13 14:02] LABS: BILIRUBIN,DIRECT 0.3 MG/DL (<0.4)
[2022-09-13 14:03] LABS: ALBUMIN 1.9 G/DL (3.2-5.2); BILIRUBIN,TOTAL 0.6 MG/DL (0.3-1.2); TOTAL PROTEIN 5.3 G/DL (5.7-8.2)
[2022-09-13 14:07] LABS: RSV AMPLIFICATION NEGATIVE (NEGATIVE)
[2022-09-13 14:16] LABS: LYMPHOCYTES 7 % (16-44); METAMYELOCYTES 1 % (0-0); MONOCYTES 4 % (0-5); NEUTROPHILS 88 % (28-66); PLATELET ESTIMATE INCREASED (NORMAL)
[2022-09-13] MEDS ORDERED: PIPERACILLIN/TAZOBACTAM SOD 3.375 GM in D5W MINI-BAG PLUS 50 ML IV ONE (14:30)
[2022-09-13] MEDS ORDERED: MORPHINE 2 MG/ML 1ML VIAL IV ONE (14:35)
[2022-09-13] MEDS ORDERED: NS 1,000 ML IV SCH (14:40)
[2022-09-13] MEDS ORDERED: ONDANSETRON 4MG 2ML VIAL IV PRN (15:00)
[2022-09-13] MEDS ORDERED: ACET650T15 PO (15:16)
[2022-09-13] MEDS ORDERED: BIMA01SOL OU (15:16)
[2022-09-13] MEDS ORDERED: TIMO0.5S39 OS (15:16)
[2022-09-13] MEDS ORDERED: BRIM1OPD OU (15:16)
[2022-09-13] MEDS ORDERED: HOME MED LIST COMPLETE! XX SCH (15:20)
[2022-09-13] MEDS: PIPERACILLIN/TAZOBACTAM SOD 3.375 GM in D5W MINI-BAG PLUS 50 ML IV SCH (20:22)
[2022-09-13] MEDS: NS 1,000 ML IV SCH (20:29)
[2022-09-13 22:53] VITALS: BP 118/67
[2022-09-14] MEDS ORDERED: D5W/0.45% SODIUM CHLORIDE 1,000 ML IV SCH
[2022-09-14] MEDS: PIPERACILLIN/TAZOBACTAM SOD 3.375 GM in D5W MINI-BAG PLUS 50 ML IV SCH ×2 (02:25→09:41)
[2022-09-14 06:01] LABS: BASO # 0.1 10^3/uL (0.0-0.2); BASO % 0.3 % (0.0-1.0); EOS % 0.2 % (0.0-3.0); HEMATOCRIT 30.1 % (36.0-47.0); HEMOGLOBIN 9.5 g/dl (12.0-15.5); LYMPH # 2.1 10^3/uL (1.5-5.0); LYMPH % 8.8 % (24.0-44.0); MEAN CORPUSCULAR HEMOGLOBIN 29.6 pg (27.0-33.0); MEAN CORPUSCULAR HGB CONC 31.6 g/dl (32.0-36.5); MEAN CORPUSCULAR VOLUME 93.8 fl (80.0-96.0); MONO % 8.7 % (2.0-8.0); NEUTROPHILS # 19.2 10^3/uL (1.5-8.5); NEUTROPHILS % 81.1 % (36.0-66.0); RED BLOOD COUNT 3.21 10^6/uL (4.00-5.40); WHITE BLOOD COUNT 23.6 10^3/uL (4.0-10.0)
[2022-09-14 06:17] VITALS: BP 117/66
[2022-09-14 06:39] LABS: CALCIUM LEVEL 7.5 MG/DL (8.3-10.6); CREATININE FOR GFR 1.7 MG/DL (0.55-1.30); GLOMERULAR FILTRATION RATE 30.2 (>32); POTASSIUM SERUM 4.1 MMOL/L (3.5-5.1)
[2022-09-14 06:56] LABS: MONO # 2.1 10^3/uL (0.0-0.8)
[2022-09-14 06:57] LABS: PLATELET COUNT, AUTOMATED 514 10^3/uL (150-450)
[2022-09-14] MEDS: NS 1,000 ML IV SCH ×3 (09:41→21:28)
[2022-09-14] MEDS: BRIMONIDINE 0.15% OPHTH SOLN 5 ML OU SCH ×2 (09:53→20:45)
[2022-09-14] MEDS ORDERED: BACI1CAP PO (10:00)
[2022-09-14] MEDS ORDERED: AMOX875T2 PO (10:00)
[2022-09-14] MEDS: TIMOLOL MALEATE 0.5% OPHTH SOLN 5 ML OS SCH ×2 (10:54→20:46)
[2022-09-14 14:00] VITALS: BP 125/69
[2022-09-14] MEDS: ACETAMINOPHEN TAB 650MG DOSE (2X325MG) PO PRN (14:34)
[2022-09-14] MEDS: PIPERACILLIN/TAZOBACTAM SOD 2.25 GM in D5W MINI-BAG PLUS 50 ML IV SCH ×2 (14:35→21:25)
[2022-09-14 20:00] VITALS: BP 137/74
[2022-09-14] MEDS ORDERED: LATANOPROST 0.005% OPHTH SOLN 2.5 ML OU SCH (21:00)
[2022-09-14] MEDS ORDERED: ENTER DRUG NAME HERE (PATIENT'S OWN MED) OU SCH (21:00)
[2022-09-15] MEDS: PIPERACILLIN/TAZOBACTAM SOD 2.25 GM in D5W MINI-BAG PLUS 50 ML IV SCH ×2 (03:35→09:40)
[2022-09-15] MEDS: BRIMONIDINE 0.15% OPHTH SOLN 5 ML OU SCH ×2 (06:25→16:02)
[2022-09-15] MEDS: TIMOLOL MALEATE 0.5% OPHTH SOLN 5 ML OS SCH ×2 (06:26→16:02)
[2022-09-15 06:47] VITALS: BP 130/66
[2022-09-15 06:48] LABS: BASO # 0.1 10^3/uL (0.0-0.2); BASO % 0.3 % (0.0-1.0); EOS # 0.2 10^3/uL (0.0-0.5); EOS % 0.8 % (0.0-3.0); HEMATOCRIT 28.9 % (36.0-47.0); HEMOGLOBIN 9.1 g/dl (12.0-15.5); LYMPH % 11.2 % (24.0-44.0); MEAN CORPUSCULAR HGB CONC 31.5 g/dl (32.0-36.5); MEAN CORPUSCULAR VOLUME 95.4 fl (80.0-96.0); MONO % 9.9 % (2.0-8.0); PLATELET COUNT, AUTOMATED 525 10^3/uL (150-450); RED BLOOD COUNT 3.03 10^6/uL (4.00-5.40); WHITE BLOOD COUNT 18.2 10^3/uL (4.0-10.0)
[2022-09-15 07:11] LABS: CALCIUM LEVEL 7.6 MG/DL (8.3-10.6); CREATININE FOR GFR 1.31 MG/DL (0.55-1.30); GLOMERULAR FILTRATION RATE 40.8 (>32); POTASSIUM SERUM 3.6 MMOL/L (3.5-5.1)
[2022-09-15 07:51] LABS: MONO # 1.8 10^3/uL (0.0-0.8)
[2022-09-15] MEDS: NS 1,000 ML IV SCH ×2 (09:41→20:43)
[2022-09-15] MEDS ORDERED: LOPERAMIDE 2 MG CAPLET PO ONE (11:00)
[2022-09-15] MEDS ORDERED: LOPERAMIDE 2 MG CAPLET PO PRN (11:30)
[2022-09-15] MEDS: VITAMIN A & D OINTMENT 42.5GM TOP SCH ×2 (13:50→17:06)
[2022-09-15] MEDS: ACETAMINOPHEN TAB 650MG DOSE (2X325MG) PO PRN ×2 (13:50→18:14)
[2022-09-15 14:00] VITALS: BP 132/68
[2022-09-15] MEDS: AUGMENTIN 875 MG TAB PO SCH (20:43)
[2022-09-15 21:00] VITALS: BP 126/67
[2022-09-16] MEDS: VITAMIN A & D OINTMENT 42.5GM TOP SCH ×3 (00:44→13:24)
[2022-09-16] MEDS: BRIMONIDINE 0.15% OPHTH SOLN 5 ML OU SCH ×2 (05:35→15:59)
[2022-09-16] MEDS: TIMOLOL MALEATE 0.5% OPHTH SOLN 5 ML OS SCH ×2 (05:35→15:59)
[2022-09-16 06:00] VITALS: BP 135/72
[2022-09-16 06:44] LABS: BASO # 0.1 10^3/uL (0.0-0.2); BASO % 0.3 % (0.0-1.0); EOS # 0.2 10^3/uL (0.0-0.5); EOS % 0.9 % (0.0-3.0); HEMATOCRIT 29.8 % (36.0-47.0); LYMPH # 2.2 10^3/uL (1.5-5.0); LYMPH % 12.4 % (24.0-44.0); MEAN CORPUSCULAR HEMOGLOBIN 29.2 pg (27.0-33.0); MEAN CORPUSCULAR HGB CONC 30.2 g/dl (32.0-36.5); MEAN CORPUSCULAR VOLUME 96.8 fl (80.0-96.0); MONO % 10.5 % (2.0-8.0); NEUTROPHILS # 13.3 10^3/uL (1.5-8.5); NEUTROPHILS % 75.1 % (36.0-66.0); PLATELET COUNT, AUTOMATED 573 10^3/uL (150-450); RED BLOOD COUNT 3.08 10^6/uL (4.00-5.40); WHITE BLOOD COUNT 17.7 10^3/uL (4.0-10.0)
[2022-09-16] MEDS: NS 1,000 ML IV SCH (07:05)
[2022-09-16 07:06] LABS: CALCIUM LEVEL 7.8 MG/DL (8.3-10.6); CREATININE FOR GFR 1.05 MG/DL (0.55-1.30); GLOMERULAR FILTRATION RATE 52.7 (>32); POTASSIUM SERUM 3.7 MMOL/L (3.5-5.1)
[2022-09-16 07:46] LABS: MONO # 1.9 10^3/uL (0.0-0.8)
[2022-09-16] MEDS ORDERED: SODIUM BICARBONATE 325 MG TAB PO SCH (09:00)
[2022-09-16] MEDS ORDERED: SELF1KIT MC ×2 (09:13→18:02)
[2022-09-16] MEDS ORDERED: NORV5TAB PO (09:13)
[2022-09-16] MEDS ORDERED: BACI1CAP PO (09:13)
[2022-09-16] MEDS ORDERED: SODI650T PO (09:13)
[2022-09-16] MEDS ORDERED: LOPE2CA PO (09:13)
[2022-09-16] MEDS ORDERED: LOPERAMIDE 2 MG CAPLET PO ONE (09:15)
[2022-09-16] MEDS: AUGMENTIN 875 MG TAB PO SCH (09:55)
[2022-09-16] MEDS ORDERED: SODIUM BICARBONATE 150 MEQ in STERILE WATER LITER BAG 1,000 ML IV SCH (10:00)
[2022-09-16] MEDS ORDERED: CALCIUM GLUCONATE 1,000 MG in D5W MINI-BAG PLUS 100 ML IV ONE (13:00)
[2022-09-16 13:07] LABS: MAGNESIUM LEVEL 1.6 MG/DL (1.8-2.4)
[2022-09-16 13:09] LABS: BLOOD UREA NITROGEN 24 MG/DL (9-23); CALCIUM LEVEL 7.6 MG/DL (8.3-10.6); CARBON DIOXIDE LEVEL 16 MMOL/L (20-31); CHLORIDE LEVEL 115 MMOL/L (98-107); CREATININE FOR GFR 0.92 MG/DL (0.55-1.30); GLOMERULAR FILTRATION RATE > 60.0 (>32); GLUCOSE, FASTING 91 MG/DL (74-106); POTASSIUM SERUM 3.6 MMOL/L (3.5-5.1); SODIUM LEVEL 144 MMOL/L (136-145)
[2022-09-16 14:00] VITALS: BP 168/74
[2022-09-16] MEDS ORDERED: SODIUM BICARBONATE 8.4% INJ 50ML SYRINGE IV STA (15:28)
[2022-09-16] MEDS ORDERED: SODIUM BICARBONATE 325 MG TAB PO ONE (15:35)
[2022-09-16 16:20] LABS: MAGNESIUM LEVEL 1.5 MG/DL (1.8-2.4)
[2022-09-16 16:21] LABS: BLOOD UREA NITROGEN 22 MG/DL (9-23); CARBON DIOXIDE LEVEL 20 MMOL/L (20-31); CHLORIDE LEVEL 113 MMOL/L (98-107); CREATININE FOR GFR 0.92 MG/DL (0.55-1.30); GLOMERULAR FILTRATION RATE > 60.0 (>32); GLUCOSE, FASTING 99 MG/DL (74-106); POTASSIUM SERUM 3.5 MMOL/L (3.5-5.1); SODIUM LEVEL 142 MMOL/L (136-145)
[2022-09-16] MEDS ORDERED: MAGNESIUM OXIDE 400MG TAB (MAG-OX) PO ONE (16:55)
[2022-09-16] MEDS ORDERED: MAGN500C2 PO (16:58)
== END 2022-09-16 18:17 | disposition home or self-care (01) | DRG 392 ==
LOC: M ED 12:18 → M ED INP 14:57 → M MSPAV 23:00
PROVIDERS: ADMIT General Practice; ATTEND General Practice
DX: K57.32 Diverticulitis of large intestine without perforation or abscess without bleeding (principal); J98.11 Atelectasis; N17.9 Acute kidney failure, unspecified; K44.9 Diaphragmatic hernia without obstruction or gangrene; N26.1 Atrophy of kidney (terminal); I12.9 Hypertensive chronic kidney disease with stage 1 through stage 4 chronic kidney disease, or unspecified chronic kidney disease; K21.9 Gastro-esophageal reflux disease without esophagitis; D72.829 Elevated white blood cell count, unspecified; J45.909 Unspecified asthma, uncomplicated; N18.9 Chronic kidney disease, unspecified; Z79.899 Other long term (current) drug therapy